=== PATIENT | male | born 1960 | race Two or more races ===

== ENCOUNTER 2016-11-19 14:19 | Emergency (ER) | payer SELFPAY ==
[~2016-11-19] VITALS: Ht 160 cm; Wt 79.1 kg
[~2016-11-19 14:19] MED LIST: AMLO5 PO; ASPI325T PO; TOBRA.3%O EACH EYE
[2016-11-19 14:25] VITALS: BP 171/95; PULSE 74; RESP 18; TEMP 97.9; O2SAT 99
[2016-11-19] MEDS ORDERED: AMLO5 PO ×2 (14:39→15:43)
[2016-11-19] MEDS ORDERED: ASPI81CH37 CHEW (14:42)
[2016-11-19] MEDS ORDERED: HYDR12.57 PO (14:52)
--- NOTE | 2016-11-19 14:59 | PD ---
HPI Chief Complaint: Pain: Acute or Chronic Time Seen by Provider: 14:47 Travel History International Travel<30 days: No Contact w/Intl Traveler<30days: No Traveled to known affect area: No History of Present Illness HPI This 56-year-old male is complaining of left-sided chest pain. The pain lasts about 5 seconds when he gets it. It is aggravated by palpation. He does have occasional pain going down his left arm. He does have a history of diabetes. He has no history of heart disease. PFSH Past Medical History Arthritis: Yes Autoimmune Disease: No Heart Rhythm Problems: No Cancer: No Cardiovascular Problems: Yes (HTN- OUT OF MEDS) High Cholesterol: Yes Chemotherapy: No Chest Pain: Yes Congestive Heart Failure: No Cerebrovascular Accident: No Diabetes: Yes (OUT OF MEDS) Patient Takes Glucophage: No Diminished Hearing: No Endocrine: No Gastrointestinal Disorders: No GERD: Yes Genitourinary: No Headaches: No Hiatal Hernia: No Hypertension: Yes Immune Disorder: No Implanted Vascular Access Dvce: No Kidney Stones: Yes Musculoskeletal: No Neurologic: No Psychiatric: No Reproductive: No Respiratory: Yes Migraines: No Radiation Therapy: No Renal Failure: No Seizures: No Sickle Cell Disease: No Sleep Apnea: No Thyroid Disease: No Ulcer: No Influenza Vaccination: No PNEUMOCCOCAL Vaccine (Year): 2 Past Surgical History Abdominal Surgery: No AICD: No Arteriovenous Shunt: No Cardiac Surgery: No Cholecystectomy: Yes Ear Surgery: No Endocrine Surgery: No Eye Surgery: No Genitourinary Surgery: No Gynecologic Surgery: No Insulin Pump: No Joint Replacement: No Neurologic Surgery: No Oral Surgery: No Pacemaker: No Thoracic Surgery: No Other Surgery: No Social History Alcohol Use: Yes (OCCASIONAL, 2 BEERS TONIGHT) Tobacco Use: Yes (1/2 PPD) Substance Use: No Allergies-Medications (Allergen,Severity, Reaction): Coded Allergies: Tylenol/Codeine (Verified Allergy, Mild, RASH, 11/19/16) Penicillin (Verified Allergy, Unknown, 11/19/16) Reported Meds & Prescriptions Reported Meds & Active Scripts Active Reported Hydrochlorothiazide 12.5 Mg Cap 12.5 Mg PO BID Aspirin Low Dose (Aspirin) 81 Mg Chew 81 Mg CHEW DAILY Review of Systems General / Constitutional: No: Fever, Chills Eyes: No: Diploplia HENT: No: Headaches, Vertigo Cardiovascular: Positive: Chest Pain or Discomfort, No: Palpitations Respiratory: No: Cough, Shortness of Breath Gastrointestinal: No: Vomiting, Diarrhea Genitourinary: No: Urgency, Frequency Musculoskeletal: No: Myalgias Neurologic: No: Weakness Physical Exam Narrative GENERAL: Well-developed male SKIN: Warm and dry. HEAD: Atraumatic. Normocephalic. EYES: Pupils equal and round. No scleral icterus. No injection or drainage. ENT: No nasal bleeding or discharge. Mucous membranes pink and moist. NECK: Trachea midline. No JVD. CARDIOVASCULAR: Regular rate and rhythm. No murmur appreciated. He does have some left precordial tenderness RESPIRATORY: No accessory muscle use. Clear to auscultation. Breath sounds equal bilaterally. GASTROINTESTINAL: Abdomen soft, non-tender, nondistended. Hepatic and splenic margins not palpable. MUSCULOSKELETAL: No obvious deformities. No clubbing. No cyanosis. No edema. NEUROLOGICAL: Awake and alert. No obvious cranial nerve deficits. Motor grossly within normal limits. Normal speech. PSYCHIATRIC: Appropriate mood and affect; insight and judgment normal. Data Data Last Documented VS Vital Signs Date Time Temp Pulse Resp B/P Pulse Ox O2 Delivery O2 Flow Rate FiO2 11/19/16 14:35 74 18 11/19/16 14:25 97.9 171/95 99 Orders Electrocardiogram (11/19/16 14:31) Complete Blood Count With Diff (11/19/16 14:54) Basic Metabolic Panel (Bmp) (11/19/16 14:54) Troponin I (11/19/16 14:54) Clonidine (Catapres) (11/19/16 15:00) Potassium Chloride (Kcl) (11/19/16 15:30) Labs Laboratory Tests Test 11/19/16 14:45 White Blood Count 9.3 TH/MM3 Red Blood Count 4.33 MIL/MM3 Hemoglobin 12.9 GM/DL Hematocrit 37.2 % Mean Corpuscular Volume 86.0 FL Mean Corpuscular Hemoglobin 29.9 PG Mean Corpuscular Hemoglobin 34.8 % Concent Red Cell Distribution Width 13.0 % Platelet Count 270 TH/MM3 Mean Platelet Volume 7.9 FL Neutrophils (%) (Auto) 66.1 % Lymphocytes (%) (Auto) 23.1 % Monocytes (%) (Auto) 6.6 % Eosinophils (%) (Auto) 2.2 % Basophils (%) (Auto) 2.0 % Neutrophils # (Auto) 6.2 TH/MM3 Lymphocytes # (Auto) 2.1 TH/MM3 Monocytes # (Auto) 0.6 TH/MM3 Eosinophils # (Auto) 0.2 TH/MM3 Basophils # (Auto) 0.2 TH/MM3 CBC Comment DIFF FINAL Differential Comment Sodium Level 142 MEQ/L Potassium Level 3.2 MEQ/L Chloride Level 105 MEQ/L Carbon Dioxide Level 24.9 MEQ/L Anion Gap 12 MEQ/L Blood Urea Nitrogen 7 MG/DL Creatinine 1.10 MG/DL Estimat Glomerular Filtration 69 ML/MIN Rate Random Glucose 140 MG/DL Calcium Level 8.5 MG/DL Troponin I LESS THAN 0.02 NG/ML MDM Medical Decision Making Medical Screen Exam Complete: Yes Emergency Medical Condition: Yes Medical Record Reviewed: Yes Differential Diagnosis Differential includes hypertension, atypical chest pain, musculoskeletal chest pain, coronary artery disease Narrative Course His pain is reproducible with palpation in the last for about 5 seconds. This is not consistent with heart disease. His EKG and troponin are normal. She'll be released with prescription for blood pressure medicines Diagnosis Primary Impression: Musculoskeletal chest pain Scripts Amlodipine (Norvasc)5 Mg Tab5 Mg PO DAILY #30 TAB Ref 0 Prov:Matias Maria MD 11/19/16 Disposition: 01 DISCHARGE HOME Condition: Stable Matias Maria MD Nov 19, 2016 14:59
[2016-11-19] MEDS ORDERED: cloNIDine HCL 0.1 MG TAB PO ONE (15:00)
[2016-11-19 15:13] LABS: CHLORIDE 105 MEQ/L (98-107); SODIUM (NA) 142 MEQ/L (136-145)
[2016-11-19 15:16] LABS: ANION GAP 12 MEQ/L (5-15); AUTOMATED NEUTROPHIL # 6.2 TH/MM3 (1.8-7.7); BASOPHIL # 0.2 TH/MM3 (0-0.2); BICARBONATE 24.9 MEQ/L (21.0-32.0); BLOOD UREA NITROGEN 7 MG/DL (7-18); EOSINOPHIL # 0.2 TH/MM3 (0-0.4); EOSINOPHIL % 2.2 % (0.0-4.0); HEMATOCRIT 37.2 % (39.0-51.0); HEMO FLAGS DIFF FINAL; LYMPH % 23.1 % (9.0-44.0); LYMPHOCYTE # 2.1 TH/MM3 (1.0-4.8); MEAN CORPUSCULAR HEMOGLOBIN 29.9 PG (27.0-34.0); MEAN CORPUSCULAR HGB CONC 34.8 % (32.0-36.0); MONO % 6.6 % (0.0-8.0); NEUT % 66.1 % (16.0-70.0); PLATELET COUNT 270 TH/MM3 (150-450); RED BLOOD COUNT 4.33 MIL/MM3 (4.50-5.90); WHITE BLOOD COUNT 9.3 TH/MM3 (4.0-11.0)
[2016-11-19 15:19] LABS: GLOMERULAR FILTRATION RATE 69 ML/MIN (>89); POTASSIUM 3.2 MEQ/L (3.5-5.1)
[2016-11-19] MEDS ORDERED: POTASSIUM CHLORIDE 20 MEQ CONTROLLED RELEASE TAB PO ONE (15:30)
[2016-11-19 15:54] VITALS: BP 182/95
--- NOTE | 2016-11-20 14:10 | EKG ---
Date Performed: 11/19/2016 Time Performed: 14:31:26 PTAGE: 56 years EKG: Sinus rhythm ST junctional depression is nonspecific Since previous tracing, no significant change noted Borderli ne ECG PREVIOUS TRACING : 04/20/2014 18.13 DOCTOR: Darren Marcelo Interpretating Date/Time 11/20/2016 14:01:39
== END 2016-11-19 16:03 | disposition home or self-care (01) ==
LOC: PHED 14:19
DX: R07.89 Other chest pain (principal); I10 Essential (primary) hypertension; E11.9 Type 2 diabetes mellitus without complications; Z87.442 Personal history of urinary calculi; F17.210 Nicotine dependence, cigarettes, uncomplicated
CPT/HCPCS: 80048; 84484; 85025; 93005